=== PATIENT | female | born 1960 | race African-American/Black ===

== ENCOUNTER 2016-09-04 10:12 | Emergency (ER) | payer OTHER ==
[~2016-09-04] VITALS: Ht 167.6 cm; Wt 100.0 kg
[2016-09-04 10:18] VITALS: Ht 167.6 cm; Wt 100.0 kg
[2016-09-04] MEDS ORDERED: ONDANSETRON 4 MG INJ IV STA (10:40)
[2016-09-04] MEDS ORDERED: HYDROmorphONE 1 MG/ML SYG IV STA (10:40)
[2016-09-04] MEDS ORDERED: SOD CHLORIDE 0.9% 500 ML IV STA (10:40)
[2016-09-04] MEDS ORDERED: SERT50TA PO (10:57)
[2016-09-04] MEDS ORDERED: AMLO2.5T78 PO (10:57)
[2016-09-04] MEDS ORDERED: OMEP20CA16 PO (10:57)
[2016-09-04] MEDS ORDERED: SIME80TA53 PO (10:58)
[2016-09-04 10:59] LABS: ADD UMIC YES; URINE BILIRUBIN (Dip) NEGATIVE (NEGATIVE); URINE BLOOD (Dip) 2+ (NEGATIVE); URINE COLOR LT. YELLOW (YELLOW); URINE GLUCOSE (Dip) NEGATIVE (NEGATIVE); URINE KETONES (Dip) NEGATIVE (NEGATIVE); URINE LEUKOCYTE ESTERASE (Dip) TRACE (NEGATIVE); URINE NITRITE (Dip) NEGATIVE (NEGATIVE); URINE TOTAL PROTEIN (Dip) NEGATIVE (NEGATIVE); URINE UROBILINOGEN (Dip) 0.2 E.U./dL (0.1-1.0)
[2016-09-04 11:01] LABS: BASOPHILS % 0.3 % (0.0-2.0); EOSINOPHILS # 0.1 10^3/ul (0.0-0.5); EOSINOPHILS % 1.1 % (0.0-7.0); HEMATOCRIT 38.5 % (37.0-47.0); HEMOGLOBIN 12.7 g/dl (12.0-16.0); LYMPHOCYTES # 1.8 10^3/ul (0.8-2.9); LYMPHOCYTES % 20.3 % (15.0-51.0); MEAN CORPUSCULAR HEMOGLOBIN 27.4 pg (29.0-33.0); MEAN CORPUSCULAR HGB CONC 32.9 g/dl (32.0-37.0); MEAN CORPUSCULAR VOLUME 83.5 fl (82.0-101.0); MEAN PLATELET VOLUME 8.4 fl (7.4-10.4); MONOCYTE # 0.5 10^3/ul (0.3-0.9); MONOCYTES % 5.9 % (0.0-11.0); NEUTROPHIL # 6.4 10^3/ul (1.6-7.5); NEUTROPHILS % 72.4 % (39.0-77.0); PLATELET COUNT 255 10^3/UL (140-440); RED BLOOD COUNT 4.61 10^6/ul (4.20-5.40); RED CELL DISTRIBUTION WIDTH 13.9 % (11.5-14.5); UNCORRECTED WBC 8.9 10^3/ul (4.8-10.8); WHITE BLOOD COUNT 8.9 10^3/ul (4.8-10.8)
[2016-09-04 11:09] LABS: ALBUMIN 4.6 g/dl (3.3-4.9)
[2016-09-04 11:10] LABS: POTASSIUM 4.2 mmol/L (3.5-5.1)
[2016-09-04 11:12] LABS: ALBUMIN/GLOBULIN RATIO 1.09; BILIRUBIN,INDIRECT 0.2 mg/dl (0-1.1); BILIRUBIN,TOTAL 0.2 mg/dl (0.2-1.3); CALCIUM 9.5 mg/dl (8.4-10.2); CONDITION 1; CREATININE 0.8 mg/dl (0.44-1.00); TOTAL PROTEIN 8.8 g/dl (6.1-8.1)
[2016-09-04 11:32] LABS: SQUAMOUS EPITHELIAL CELL,UR FEW
--- NOTE | 2016-09-04 11:41 | RADRPT ---
PROCEDURE: Abdominal ultrasound CLINICAL INDICATION: Abdominal pain TECHNIQUE: Moctezuma scale, color Doppler, and spectral Doppler ultrasound images of the right upper qu adrant. COMPARISON: None FINDINGS: Pancreas: Visualized portions appear of normal echogenicity, no focal lesions. Liver: Morphology: Normal in size and contour. Echogenicity: Increased echogenicity of the liver parenchyma suggestive of hepatic steatosis. Focal lesions: None. Main portal vein: Patent with hepatopetal flow. Biliary System: Normal appearing gallbladder wall. Small gallstones are present within the gallbladder. No intra or extra-hepatic biliary dilatation. Common bile duct measures 5.9 mm in maximal dimension. Kidneys: Right 11.9 cm in length. Normal echogenicity. No hydronephrosis. No focal lesions or renal calculi. No free fluid identified. IMPRESSION: Cholelithiasis without evidence of abnormal gallbladder wall thickening to suggest cholecystitis. Normal caliber of the intrahepatic and extrahepatic biliary system. Increased echogenicity of the liver parenchyma suggestive of hepatic steatosis. RPTAT: AADD .Mehran Roy MD, MD Date Time Electronically viewed and signed by .Mehran Roy MD, on 09/04/2016 11:41 .B/
[2016-09-04] MEDS ORDERED: HYDR-906 PO (12:35)
[2016-09-04] MEDS ORDERED: ONDA4SOL2 PO (12:35)
--- NOTE | 2016-09-04 12:47 | ERD ---
ER Documentation Chief Complaint Date/Time DATE: 09/04/16 TIME: 12:45 Chief Complaint BIB RA FOR EVAL OF UPPER ABD PAIN. HPI 56-year-old female presents the emergency department complaining of epigastric abdominal pain. Patient tells me that recently she has had the spontaneous, non-provoked onset of a severe epigastric abdominal pain. Patient's pain does not radiate. It is associated with nausea but no vomiting. Patient reports no fevers or chills. Patient reports no urinary or gynecologic symptoms. Patient states the pain is moderate to severe. ROS All systems reviewed and are negative except as per history of present illness. Medications Home Meds Active Scripts Ondansetron HCl (Zofran) 4 Mg/5 Ml Solution, 4 MG PO TID, #14 Prov:ANDREINA TOMAS 09/04/16 Hydrocodone/Acetaminophen ([place] 5-325 Tablet) 1 Each Tablet, 1 EACH PO TID, # 14 TAB Prov:ANDREINA TOMAS 09/04/16 Reported Medications Simethicone (GAS RELIEF) 80 Mg Tab.chew, 80 MG PO DAILY, TAB.CHEW 09/04/16 Sertraline Hcl* (Zoloft*) 50 Mg Tablet, 50 MG PO DAILY, #30 TAB 09/04/16 Amlodipine Besylate* (Amlodipine Besylate*) 2.5 Mg Tablet, 2.5 MG PO DAILY, #30 TAB 09/04/16 Omeprazole* (Omeprazole*) 20 Mg Capsule.dr, 20 MG PO AC BREAKFAST, #30 CAP 09/04/16 Allergies Allergies: Coded Allergies: No Known Allergy (Unverified , 09/04/16) PMhx/Soc History of Surgery: Yes (lt shoulder ) Anesthesia Reaction: No Hx Neurological Disorder: No Hx Respiratory Disorders: No Hx Cardiac Disorders: Yes (htn) Hx Psychiatric Problems: Yes (depression ) Hx Miscellaneous Medical Probl: Yes (gastritis ) Hx Alcohol Use: No Hx Substance Use: No Hx Tobacco Use: No Smoking Status: Never smoker FmHx Noncontributory for chief complaint Physical Exam Vitals Vital Signs Date Time Temp Pulse Resp B/P Pulse Ox O2 Delivery O2 Flow Rate FiO2 09/04/16 10:18 97.9 77 18 187/88 100 Physical Exam GENERAL: The patient is well developed and appropriate for usual state of health in no apparent distress HEENT: Pupils equal, round, and reactive to light. EOMI. There is no scleral icterus. NECK: C-spine is soft and supple, there is no meningismus. There is no cervical lymphadenopathy. LUNGS: Clear to auscultation bilaterally. There are no rales, wheezes or rhonchi. HEART: Regular rate and rhythm, no murmurs, clicks, rubs or gallops. ABDOMEN: Soft, non-distended. There are bowel sounds in all four quadrants. No rebound or guarding. There is right upper quadrant tenderness without Garvey sign. EXTREMITIES: There is no peripheral cyanosis or edema. No focal swelling or erythema. NEURO: The patient moves all four extremities with 5/5 strength. Cranial nerves II - XII are intact. Normal gait. Alert and oriented SKIN: There is no apparent rash or petechiae. HEME/LYMPHATIC: There is no evidence of excessive bruising or lymphedema. PSYCHIATRIC: The patient does not appear anxious or depressed. Result Diagram: 09/04/16 1046 09/04/16 1046 Results 24 hrs Laboratory Tests Test 09/04/16 10:46 Alanine Aminotransferase (ALT/SGPT) 31IU/L Albumin 4.6g/dl Albumin/Globulin Ratio 1.09 Alkaline Phosphatase 50IU/L Anion Gap 18 Aspartate Amino Transf (AST/SGOT) 30IU/L Basophils # 0.010^3/ul Basophils % 0.3% Blood Morphology Comment Blood Urea Nitrogen 12mg/dl Calcium Level 9.5mg/dl Carbon Dioxide Level 26mmol/L Chloride Level 102mmol/L Creatinine 0.80mg/dl Direct Bilirubin 0.00mg/dl Eosinophils # 0.110^3/ul Eosinophils % 1.1% Globulin 4.20g/dl Glucose Level 110mg/dl Hematocrit 38.5% Hemoglobin 12.7g/dl Indirect Bilirubin 0.2mg/dl Lipase 80U/L Lymphocytes # 1.810^3/ul Lymphocytes % 20.3% Mean Corpuscular Hemoglobin 27.4pg Mean Corpuscular Hemoglobin Concent 32.9g/dl Mean Corpuscular Volume 83.5fl Mean Platelet Volume 8.4fl Monocytes # 0.510^3/ul Monocytes % 5.9% Neutrophils # 6.410^3/ul Neutrophils % 72.4% Nucleated Red Blood Cells # 0.010^3/ul Nucleated Red Blood Cells % 0.0/100WBC Platelet Count 18335^3/UL Potassium Level 4.2mmol/L Red Blood Count 4.6110^6/ul Red Cell Distribution Width 13.9% Sodium Level 142mmol/L Total Bilirubin 0.2mg/dl Total Protein 8.8g/dl Urine Bilirubin NEGATIVE Urine Clarity CLEAR Urine Color LT. YELLOW Urine Glucose NEGATIVE% Urine Hemoglobin 2+ Urine Ketones NEGATIVE Urine Leukocyte Esterase TRACE Urine Microscopic RBC 2-5/HPF Urine Microscopic WBC 0-2/HPF Urine Nitrite NEGATIVE Urine Specific [place] 1.015 Urine Squamous Epithelial Cells FEW Urine Total Protein NEGATIVE Urine Urobilinogen 0.2 E.U./dL Urine pH 7.5 White Blood Count 8.910^3/ul Current Medications Medications (Trade) Dose Ordered Sig/Suzi Route PRN Reason Start Time Stop Time Status Last Admin Dose Admin Sodium Chloride (NS) 500 ml @ 500 mls/hr Q1H STAT IV 09/04/16 10:40 09/04/16 11:39 DC 09/04/16 10:50 Hydromorphone HCl (Dilaudid) 0.5 mg ONCE STAT IV 09/04/16 10:40 09/04/16 10:41 DC 09/04/16 10:50 Ondansetron HCl (Zofran Inj) 4 mg ONCE STAT IV 09/04/16 10:40 09/04/16 10:41 DC 09/04/16 10:50 Procedures/MDM Patient was taken to a room, seen and evaluated. Comfort measures were initiated. Diagnostic tests were ordered and reviewed. 3 LEAD RHYTHM STRIP: Normal sinus rhythm without ectopy RADIOLOGY: reviewed with the radiologist REEVALUATION: Serial examinations of the abdomen remained benign and she had adequate pain relief MEDICAL DECISION MAKING: Patient presents with abdominal pain of uncertain etiology. Differential diagnosis considered includes appendicitis, diverticulitis, cholecystitis and other intra-abdominal medical and surgical concerns. I have reviewed the patients lab studies and imaging as well as multiple examinations of the abdomen. At this time, patient presents with evidence of acute biliary colic but no evidence of obstruction or significant secondary infection. Her pain is well controlled and she appears to be appropriate for outpatient care at this time. Departure Diagnosis: Primary Impression: Biliary colic Condition: Stable Patient Instructions: Biliary Colic With Gallstone (Confirmed) ANDREINA TOMAS Sep 04, 2016 12:47
[2016-09-04 12:48] VITALS: BP 167/90; PULSE 88; RESP 18; TEMP 98.2
== END 2016-09-04 12:49 | disposition home or self-care (01) ==
LOC: E/R 10:12
DX: K80.50 Calculus of bile duct without cholangitis or cholecystitis without obstruction (principal); R11.0 Nausea; I10 Essential (primary) hypertension
CPT/HCPCS: 36415; 76705; 80053; 81001; 81003; 83690; 85025; 96374; 96375; J1170; J2405; J7040; Z7502

== ENCOUNTER 2017-01-10 15:06 | Emergency (ER) | payer OTHER ==
[~2017-01-10] VITALS: Ht 167.6 cm; Wt 120.0 kg
[~2017-01-10 15:06] MED LIST: AMLO2.5T78 PO; HYDR-906 PO; OMEP20CA16 PO; ONDA4SOL2 PO; SERT50TA PO; SIME80TA53 PO
[2017-01-10 15:10] VITALS: Ht 167.6 cm; Wt 120.0 kg
[2017-01-10] MEDS ORDERED: BEN25 PO (15:33)
[2017-01-10] MEDS ORDERED: PRED20TA PO (15:33)
--- NOTE | 2017-01-10 15:40 | ERD ---
ER Documentation Chief Complaint Date/Time DATE: 01/10/17 TIME: 15:37 Chief Complaint BEE STING TO NECK, C/O THROAT GETTING SCRATCHING HPI 56-year-old female presents with a bee sting that occurred to the right side of the anterior neck approximately 45 minutes ago. She states that she has never been stung by bees before, she felt a slight stinging she had pushed the bee off and had actually flown out of her sweater. Patient states she has localized erythema and swelling to the skin, which has also improved without any medications or intervention. She states that she felt her throat getting scratchy and therefore came to the emergency room. Since then she has not had any shortness of breath, tongue swelling, or any respiratory distress. ROS All systems reviewed and are negative except as per history of present illness. Medications Home Meds Active Scripts Prednisone* (Prednisone*) 20 Mg Tab, 40 MG PO DAILY for 4 Days, TAB Prov:TU KIRBY PA-C 01/10/17 Diphenhydramine Hcl* (Benadryl*) 25 Mg Cap, 25 MG PO Q6, #30 CAP Prov:TU KIRBY PA-C 01/10/17 Ondansetron HCl (Zofran) 4 Mg/5 Ml Solution, 4 MG PO TID, #14 Prov:ANDREINA TOMAS 09/04/16 Hydrocodone/Acetaminophen ([place] 5-325 Tablet) 1 Each Tablet, 1 EACH PO TID, # 14 TAB Prov:ANDREINA TOMAS 09/04/16 Reported Medications Simethicone (GAS RELIEF) 80 Mg Tab.chew, 80 MG PO DAILY, TAB.CHEW 09/04/16 Sertraline Hcl* (Zoloft*) 50 Mg Tablet, 50 MG PO DAILY, #30 TAB 09/04/16 Amlodipine Besylate* (Amlodipine Besylate*) 2.5 Mg Tablet, 2.5 MG PO DAILY, #30 TAB 09/04/16 Omeprazole* (Omeprazole*) 20 Mg Capsule.dr, 20 MG PO AC BREAKFAST, #30 CAP 09/04/16 Allergies Allergies: Coded Allergies: No Known Allergy (Unverified , 09/04/16) PMhx/Soc History of Surgery: Yes (lt shoulder ) Anesthesia Reaction: No Hx Neurological Disorder: No Hx Respiratory Disorders: No Hx Cardiac Disorders: Yes (htn) Hx Psychiatric Problems: Yes (depression ) Hx Miscellaneous Medical Probl: Yes (gastritis ) Hx Alcohol Use: No Hx Substance Use: No Hx Tobacco Use: No Physical Exam Vitals Vital Signs Date Time Temp Pulse Resp B/P Pulse Ox O2 Delivery O2 Flow Rate FiO2 01/10/17 15:10 97.2 97 18 184/84 96 Physical Exam General: Well-developed, well-nourished. The patient appears in no acute distress. HEENT: Head is normocephalic, atraumatic. No scleral icterus. No angioedema. Neck: Supple. Nontender. Lungs: Clear to auscultation. Normal air movement. Heart: Regular rate and rhythm. S1 and S2 are normal. No murmurs, gallops, or rubs. Abdomen: Soft, nontender, nondistended. Bowel sounds are normoactive. Extremities: No clubbing or cyanosis. Normal pulses. Moving extremities x 4. No weakness. Neurologic: Alert and oriented 3. No focal deficits. Skin: Small stinger that is white colored can be seen on the right anterior neck is white, mild erythema approximately 1 cm in radius. Results 24 hrs Current Medications Medications (Trade) Dose Ordered Sig/Suzi Route PRN Reason Start Time Stop Time Status Last Admin Dose Admin Prednisone (Prednisone) 40 mg ONCE ONCE PO 01/10/17 16:00 01/10/17 16:00 DC 01/10/17 15:37 Diphenhydramine HCl (Benadryl) 25 mg ONCE ONCE PO 01/10/17 16:00 01/10/17 16:00 DC 01/10/17 15:37 Procedures/MDM ED course: Patient was given Benadryl 25 mg by mouth and prednisone 40 mg p.o. Please forceps to remove the stinger out. MDM: 56 to female comes with a bee sting, with a localized reaction. She reports that she might have had some throat scratching however at this time she does not show any signs of respiratory distress, angioedema, or wheezing. She will be given Benadryl and prednisone to continue. Yet she does not show any signs of anaphylaxis or systemic signs and is appropriate to be discharged home. Departure Diagnosis: Primary Impression: Insect bites and stings Condition: Good Patient Instructions: Insect Bites and Stings Additional Instructions: Call your primary care doctor TOMORROW for an appointment during the next 1-2 days.See the doctor sooner or return here if your condition worsens before your appointment time. TU KIRBY PA-C January 10, 2017 15:40
[2017-01-10] MEDS ORDERED: DIPHENHYDRAMINE 25 MG CAP PO ONE (16:00)
[2017-01-10] MEDS ORDERED: predniSONE 20 MG TAB PO ONE (16:00)
== END 2017-01-10 15:48 | disposition home or self-care (01) ==
LOC: FTE 15:06
DX: T63.441A Toxic effect of venom of bees, accidental (unintentional), initial encounter (principal); I10 Essential (primary) hypertension
CPT/HCPCS: J7512; Z7610; 99283

== ENCOUNTER 2017-08-20 17:02 | Emergency (ER) | payer SELFPAY ==
[~2017-08-20] VITALS: Ht 172.7 cm; Wt 119.0 kg
[~2017-08-20 17:02] MED LIST changes: +BEN25 PO; +PRED20TA PO
[2017-08-20 17:04] VITALS: Ht 172.7 cm; Wt 119.0 kg
== END 2017-08-20 21:19 | disposition left against medical advice (07) ==
LOC: E/R 17:02
DX: Z53.21 Procedure and treatment not carried out due to patient leaving prior to being seen by health care provider (principal)

== ENCOUNTER 2018-03-20 07:56 | Day surgery (SDC) | END 2018-03-20 11:58 | disposition home or self-care (01) ==